=== PATIENT | male | born 1990 | race Two or more races ===

== ENCOUNTER 2016-08-15 15:21 | Emergency (ER) | payer SELFPAY ==
[~2016-08-15] VITALS: Ht 172.7 cm; Wt 63.5 kg
--- NOTE | 2016-08-15 15:46 | Emergency Room Report ---
History of Present Illness General Chief Complaint: Pain Source: Patient Present Illness HPI 25-year-old male presents emergency department complaining of left-sided jaw swelling and 10/10 localized pain/ tenderness since last night, with mild swelling noted in the right side as well. Patient denies fevers, chills, recent upper respiratory illnesses. Patient states he is up-to-date with vaccinations however he is significantly worried that he has mumps because one of his friends who is a nurse told him that he has mumps. He denies fatigue, lethargy, rashes, abdominal pain, joint pain. Patient denies recent dental procedures. Patient states pain is exacerbated when he chews denies pain with opening his mouth. He denies pain in the ear or difficulty hearing. Denies CP, Palpitations, LOC, AMS, dizziness, Changes in Vision, Sensation, paresthesias, or a sudden severe headache. Allergies: Coded Allergies: No Known Allergies (Unverified , 08/15/16) Patient History Past Medical History: see triage record Past Surgical History: none Pertinent Family History: none Immunizations: UTD Reviewed Nursing Documentation: PMH: Agreed, PSxH: Agreed Nursing Documentation-PMH Past Medical History: No Stated History Review of Systems All Other Systems: negative except mentioned in HPI Physical Exam Vital Signs Date Time Temp Pulse Resp B/P Pulse Ox O2 Delivery O2 Flow Rate FiO2 08/15/16 15:29 101.5 86 16 138/74 96 Room Air Sp02 EP Interpretation: abnormal - fever of 101.4 General Appearance: no apparent distress, alert, GCS 15, non-toxic Head: normocephalic, atraumatic Eyes: bilateral eye PERRL, bilateral eye normal inspection ENT: hearing grossly normal, normal pharynx, no angioedema, normal voice, TMs + canals normal, uvula midline, moist mucus membranes, other - moderate swelling noted to the angle of the jaw/parotid gland, ttp only from the exterior , bimanual exam was benign, no trismus, difficult to assess pre-auricular lad. there is a pustule noted as well no appreciable surrounding erythema, increased temperature to palpation or fluctuance. Neck: full range of motion, no meningismus, no bony tend, supple/symm/no masses Respiratory: lungs clear, normal breath sounds, speaking full sentences Cardiovascular #1: regular rate, rhythm, no edema Musculoskeletal: back normal, gait/station normal, normal range of motion, non- tender Neurologic: alert, oriented x3, responsive, motor strength/tone normal, sensory intact, speech normal Psychiatric: judgement/insight normal, memory normal, mood/affect normal Skin: normal color, no rash, warm/dry, well hydrated, other - moderate swelling noted to the angle of the jaw/parotid gland, ttp only from the exterior , bimanual exam was benign, no trismus, difficult to assess pre-auricular lad. there is a pustule noted as well no appreciable surrounding erythema, increased temperature to palpation or fluctuance. Lymphatic: no adenopathy Medical Decision Making PA Attestation Dr. Carrington is my supervising Physician whom patient management has been discussed with. Diagnostic Impression: Primary Impression: Parotitis, acute ER Course 25-year-old male presents emergency department complaining of left-sided jaw swelling and 10/10 localized pain/ tenderness since last night, with mild swelling noted in the right side as well. Patient denies fevers, chills, recent upper respiratory illnesses. Patient states he is up-to-date with vaccinations however he is significantly worried that he has mumps because one of his friends who is a nurse told him that he has mumps. He denies fatigue, lethargy, rashes, abdominal pain, joint pain. Patient denies recent dental procedures. Patient states pain is exacerbated when he chews denies pain with opening his mouth. He denies pain in the ear or difficulty hearing. Ddx considered but are not limited to parotitis, bacterial cellulitis, abscess, dental/gum abscess, MANAGEMENT SUPERVISOR. Vital signs: are WNL, pt. is febrile at 101.4 H&PE are most consistent with Parotitis will treat as bacterial, d/w pt. that mumps is viral and self limiting. ORDERS: none required at this time, the diagnosis is clinical ED INTERVENTIONS: -[place] PO DISCHARGE: At this time pt. is stable for d/c to home. Will provide printed patient care instructions, and any necessary prescriptions. Care plan and follow up instructions have been discussed with the patient prior to discharge. Last Vital Signs Date Time Temp Pulse Resp B/P Pulse Ox O2 Delivery O2 Flow Rate FiO2 08/15/16 15:29 101.5 86 16 138/74 96 Room Air Disposition: HOME, SELF-CARE Condition: Stable Scripts Ibuprofen* (MOTRIN*) 600 Mg Tablet 600 MG ORAL THREE TIMES A DAY, #20 TAB 0 Refills Prov: Nakia Hampton 08/15/16 Hydrocodone Bit/Acetaminophen 5-325* (NORCO 5-325*) 1 Each Tablet 1 TAB ORAL Q6H Y for For Pain, #6 TAB 0 Refills Prov: Nakia Hampton 08/15/16 Amoxicillin/Potassium Clav 875-125* (AUGMENTIN 875-125 TABLET*) 1 Each Tablet 1 TAB ORAL TWICE A DAY for 7 Days, #14 TAB Prov: Nakia Hampton 08/15/16 Patient Instructions: Parotitis Additional Instructions: Take medications as directed. Follow up with PCP in 3-5 days Return sooner to ED if new symptoms occur, or current symptoms become worse. Do not drink alcohol, drive, or operate heavy machinery while taking [place] as this may cause drowsiness. - Please note that this Emergency Department Report was dictated using [employer] manager technology software, occasionally this can lead to erroneous entry secondary to interpretation by the dictation equipment. Nakia Hampton Aug 15, 2016 15:46
[2016-08-15] MEDS ORDERED: Norco 5mg/325mg tab ORAL ONE (16:00)
[2016-08-15] MEDS ORDERED: IBUPROFEN600 MG ORAL (16:07)
[2016-08-15] MEDS ORDERED: NORCO 5-325 TA1 EACH ORAL (16:07)
[2016-08-15] MEDS ORDERED: AUGMENTIN 875-1 EAC1 ORAL (16:07)
[2016-08-15 16:26] VITALS: BP 128/71
[2016-08-15 16:27] VITALS: BP 128/71
== END 2016-08-15 16:27 | disposition home or self-care (01) ==
LOC: EMR 15:55
DX: K11.20 Sialoadenitis, unspecified (principal)
CPT/HCPCS: 99284